=== PATIENT | male | born 1945 | race Caucasian/White ===

== ENCOUNTER → 2021-03-29 13:35 | Outpatient (BNVA) | payer MEDICARE, SELFPAY | PROVIDERS: Visit Provider Urology | DX: C61 Malignant neoplasm of prostate (principal); R31.29 Other microscopic hematuria | CPT/HCPCS: Q3014 ==

== ENCOUNTER → 2022-04-03 12:50 | Outpatient (BNVA) | payer MEDICARE, SELFPAY | PROVIDERS: Visit Provider Urology | DX: N40.1 Benign prostatic hyperplasia with lower urinary tract symptoms (principal); N13.8 Other obstructive and reflux uropathy; C61 Malignant neoplasm of prostate; N52.9 Male erectile dysfunction, unspecified | CPT/HCPCS: Q3014 ==

== ENCOUNTER 2023-05-28 11:55 | Outpatient (AMB) | payer MEDICARE, BC, SELFPAY ==
--- NOTE | 2023-05-28 13:41 | MHC.OFFVIS ---
Intake Intake Visit Reasons: 1Y PSA(set) Allergies No Known Allergies Allergy (Verified 03/29/21 12:55) Medication List - Last Reconciled 05/28/23 by Hernesto Sanchez MD apixaban (Eliquis) 5 mg PO BID HPI HPI Comments History of Present Illness Details Noe RAMIREZ is a very pleasant male. He is a patient of Dr Maciel. He is seen for the following urologic conditions. - prostate cancer Telephone evaluation 15 minute consultation Doximity valeria Video attempted PSA 03/02 <0.1, 05/04 <0.1 Ten years since salvage radiation PSA remains in control Continue yearly review Control with urination Minimal nocturia Prostate cancer:? Low risk initial therapy prostatectomy, salvage radiation 2011 ? Prostate cancer was diagnosed?Dr Mobley.? Diagnosis was reached by?needle biopsy, for elevated PSA.? The [place] grade is?3+3 = 6.? TNM Classification of Malignant Tumours (TNM)?T1c.? The D'Ros[place] (NCCN) risk category is?Low Risk (PSA< 10, Gl < 7, T1c).? Initial therapy included?Primary treatment, Prostatectomy (RRP/Robotic) 2008 ?, Additional treatment, External Beam Radiation 2011 ?, Additional treatment, Observation ? Recent labs included?a PSA (prostate-specific antigen) reported as < 0.1 ?10/26 < 0.1, 10/27 , < 0.1,?10/28 < 0.1,??10/29 < 0.1, 03/01 <0.1 ? Associated conditions ? erectile dysfunction ?yes ? Therapeutic plan:?Continue with yearly surveillance.? PFSH Medical History BPH (benign prostatic hyperplasia) Microscopic hematuria Prostate cancer Surgical History History of surgery Social History Patient Tobacco Use Status: Never used Tobacco Review of Systems Const All systems reviewed & are unremarkable except as noted in HPI and below Reports no additional complaints Resp Reports no additional complaints GI Reports no additional complaints Reports as per HPI Musc Reports no additional complaints Physical Exam Telemedicine evaluation Appropriate responses Regular breathing rate and rhythm HEENT Head: Yes normal to inspection Ears: hearing grossly normal bilaterally Eyes General: appearance normal, both eyes and all related structures Neck Neck: Yes normal visual inspection Chest Chest palpation & inspection: normal inspection of the chest Resp Effort & Inspection: normal respiratory effort and able to speak in complete sentences Assessment & Plan Assessment & Plan (1) Microscopic hematuria: Code(s): R31.29 - Other microscopic hematuria (2) Prostate cancer: Code(s): C61 - Malignant neoplasm of prostate Plan 12m with PSA Orders: Orders Prostate Specific Antigen 364 Days C61 - Malignant neoplasm of prostate Patient Instructions: Imaging studies, laboratory and physical exam results were discussed and reviewed in detail. No major barriers to patient understanding were identified. An opportunity to ask questions regarding the treatment plan was provided. All questions were answered. The patient expressed understanding and agreement with the above treatment plan. The patient is aware they should contact our office by phone for worsening of their current condition or the appearance of new urologic symptoms. Compliance is encouraged with any medications and followup testing that is ordered. It is a privilege to participate in the urologic care of your patient. If you have any questions or concerns regarding treatment for the above conditions, or other urologic issues, please do not hesitate to contact me. The office telephone contact is [phone]. This note is constructed using voice recognition software. While every effort has been made to ensure accuracy dress cap maker errors may have been included. Yours sincerely, Dr Hernesto Sanchez MD, [facility] - Urology Providers of Expert, Compassionate Care for the Genitourinary System Telehealth Telehealth Location of provider rendering services: practice address Location of patient: address on file Patient Identification confirmed using: Name, : Yes Telehealth method: video Patient verbally consented to treatment: Yes Patient verbally consented to billing insurance company: Yes Patient informed of any privacy concerns related to visit: Yes Coding Level of Care Code Tele Est Pt Level 4 (20395) Diagnoses Microscopic hematuria R31.29 Prostate cancer C61
== END 2023-05-28 13:53 | disposition home or self-care (01) ==
LOC: HO.HUSH 11:55
PROVIDERS: Visit Provider Urology
DX: R31.29 Other microscopic hematuria (principal); Z85.46 Personal history of malignant neoplasm of prostate
CPT/HCPCS: 99442

== ENCOUNTER → 2023-05-28 11:55 | Outpatient (BNVA) | payer MEDICARE, SELFPAY | PROVIDERS: Visit Provider Urology ==

== ENCOUNTER 2024-06-24 10:08 | Outpatient (AMB) | payer MEDICARE, BC, SELFPAY ==
--- NOTE | 2024-06-24 10:16 | A.OFFVIS_ITS ---
Intake Visit Reasons: 1Y PSA(psa?) Intake Note: Patient is Present for Follow Up PSA Urology Medication: None Antibiotic Allergies: None Blood Thinners: Eliquis Recent PSA: 06/17/24 0.04 Aircraft Engine Dismantler Required: No Accompanied by: Self / Same As Patient Allergies No Known Allergies Allergy (Verified 06/24/24 10:19) HPI Comments Details: Noe RAMIREZ is a very pleasant male. He is a patient of Dr Maciel. He is seen for the following urologic conditions. - prostate cancer PSA 03/02 <0.1, 05/04 <0.1, 07/05 0.04 Continue good PSA control - discussed ultrasensitive PSA versus regular Control with urination Minimal nocturia Continue yearly follow-up Prostate cancer:? Low risk initial therapy prostatectomy, salvage radiation 2011 ? Prostate cancer was diagnosed?Dr Mobley.? Diagnosis was reached by?needle biopsy, for elevated PSA.? The [place] grade is?3+3 = 6.? TNM Classification of Malignant Tumours (TNM)?T1c.? The D'Rosario (NCCN) risk category is?Low Risk (PSA< 10, Gl < 7, T1c).? Initial therapy included?Primary treatment, Prostatectomy (RRP/Robotic) 2008 ?, Additional treatment, External Beam Radiation 2011 ?, Additional treatment, Observation ? Recent labs included?a PSA (prostate-specific antigen) reported as < 0.1 ?10/26 < 0.1, 10/27 , < 0.1,?10/28 < 0.1,??10/29 < 0.1, 03/01 <0.1 ? Associated conditions ? erectile dysfunction ?yes ? Therapeutic plan:?Continue with yearly surveillance.? [facility] Medical History BPH (benign prostatic hyperplasia) Microscopic hematuria Prostate cancer Surgical History History of surgery Social History Patient Tobacco Use Status: Never used Tobacco Review of Systems Const Denies chills and Denies fever(s) Card Reports no additional complaints and Denies syncope Resp Denies cough GI Denies abdominal pain and Denies heartburn Reports as per HPI and Denies change in libido Neuro Denies syncope Psych Denies change in libido Endo Denies change in libido Physical Exam Const General: cooperative, healthy appearing, comfortable and no acute distress Orientation/consciousness: patient oriented x3 HEENT Face and sinus: Yes normal facial exam Mouth: moist mucous membranes Neck Neck: Yes normal visual inspection, Yes full ROM and Yes trachea midline Chest Chest palpation & inspection: normal inspection of the chest Resp Effort & Inspection: normal respiratory effort, able to speak in complete sentences and no respiratory distress GI Inspection: Yes normal to inspection Back/Spine/Pelvis Cervical Spine: normal cervical lordosis Thoracic/Lumbar Spine: thoracic and lumbar spine normal to inspection Skin General skin exam: no rashes or lesions noted Neuro General: patient oriented x3, gait normal, tone normal and moves all extremities Extrem General: Yes normal to inspection and Yes capillary refill normal Assessment & Plan Assessment & Plan (1) Microscopic hematuria: Code(s): R31.29 - Other microscopic hematuria Category: Medical (2) Prostate cancer: Code(s): C61 - Malignant neoplasm of prostate Category: Medical Plan One year follow-up Orders: Orders Prostate Specific Antigen 364 Days C61 - Malignant neoplasm of prostate Patient Instructions: Imaging studies, laboratory and physical exam results were discussed and reviewed in detail. No major barriers to patient understanding were identified. An opportunity to ask questions regarding the treatment plan was provided. All questions were answered. The patient expressed understanding and agreement with the above treatment plan. The patient is aware they should contact our office by phone for worsening of their current condition or the appearance of new urologic symptoms. Compliance is encouraged with any medications and followup testing that is ordered. It is a privilege to participate in the urologic care of your patient. If you have any questions or concerns regarding treatment for the above conditions, or other urologic issues, please do not hesitate to contact me. The office telephone contact is [phone]. This note is constructed using voice recognition software. While every effort has been made to ensure accuracy bill of lading clerk errors may have been included. Yours sincerely, Dr Hernesto Sanchez MD, [facility] - Urology Providers of Expert, Compassionate Care for the Genitourinary System Coding Level of Care Code Est Pt Level 4 (42127) Diagnoses Microscopic hematuria R31.29 Prostate cancer C61
== END 2024-06-24 10:56 | disposition home or self-care (01) ==
PROVIDERS: Visit Provider Urology
DX: R31.29 Other microscopic hematuria (principal); C61 Malignant neoplasm of prostate
CPT/HCPCS: 99214

== ENCOUNTER → 2024-06-24 10:08 | Outpatient (BNVA) | payer MEDICARE, SELFPAY | PROVIDERS: Visit Provider Urology | DX: C61 Malignant neoplasm of prostate (principal); R31.29 Other microscopic hematuria | CPT/HCPCS: 99212 ==

== ENCOUNTER 2025-06-23 08:52 | Outpatient (AMB) | payer MEDICARE, SELFPAY ==
--- OUTSIDE RECORDS SUMMARY | 2024-07-06 03:30 | XMS_ITS ---
Author Organization [facility] Address [address] [place], [place] [id number] Care Team Providers Care Rubber Mixer Name Role Phone GELAERIN Primary Care Provider ALLERGIES Allergen (clinical drug ingredient) Drug/Non Drug Allergy documented on EMR Reaction Allergy Type Onset Date Status Shellfish (FN) Shellfish-derived Products hives, rash Drug Allergy Active Shellfish (FN) Shellfish-derived Products itchy, hives Drug Allergy Active REASON FOR VISIT N/36/AWV SOCIAL HISTORY Tobacco Use: Social History Observation Description Date Details (start date - stop date) Former Smoker NA - NA Sex Assigned At : Social History Observation Description Sex Assigned At Unknown Smoking Question Answer Notes Are you a: former smoker How long has it been since you last smoked? > 10 years Alcohol Screen Question Answer Notes Did you have a drink contain ing alcohol in the past year? Yes How often did you have a dri nk containing alcohol in the past year? Monthly or less (1 point) How many drinks did you have on a tpical day when you were drinking in the past year? 3 or 4 (1 point) How often did you have six o r more drinks on one occassion in the past year? Never (0 points) Points 2 Interpretation Negative Section Notes: 1 cup of coffe effee VITAL SIGNS Height 71 in 07/06/2024 Weight 207.2 lbs 07/06/2024 Blood pressure systolic 130 mm Hg 07/06/20 24 Blood pressure diastolic 72 mm Hg 024 BMI 28.90 kg/m2 07/06/2024 Encounters Encounter Location Date Provider Diagnosis [facility] [address] [place] [phone] 07/06/2024 ERIN REN Medicare annual wellness visit, subsequent Z00.00 ASSESSMENTS Encounter Date Diagnosis Assessment Notes Treatment Notes Treatment Clinical Notes Section Notes 07/06/2024 Medicare annual wellness visit, subsequent (ICD-10 - Z00.00) AWV reviewed with pt PLAN OF TREATMENT Treatment Notes Assessment Notes Medicare annual wellness visit, subseque nt AWV reviewed with pt Next Appt Details Follow Up: prn, Reason: Provider Name:ZEUS Mcclure, 07/12/2025 09:00:00 AM, [address] [place] [address], [phone], Provider Name:ERIN GELA, 07/12/2025 09:40:00 AM, [address] [place] [address], [phone], History and Physical Notes * HPI (History of Present Illness) Category Sub-Category Detail Notes Category Not es Depression Screening PHQ-2 (2015 Edition) Little interest or pleasure in doing things?: Not at all Feeling down, depressed, or hopeless?: N ot at all Total Score: 0
--- OUTSIDE RECORDS SUMMARY | 2024-07-06 04:00 | XMS_ITS ---
Author Organization [facility] Address [address] [place], [place] [id number] Care Team Providers Care Brewery Technician Name Role Phone GELAERIN Primary Care Provider [phone] ALLERGIES Allergen (clinical drug ingredient) Drug/Non Drug Allergy documented on EMR Reaction Allergy Type Onset Date Status Shellfish (FN) Shellfish-derived Products hives, rash Drug Allergy Active Shellfish (FN) Shellfish-derived Products itchy, hives Drug Allergy Active REASON FOR VISIT AWV, had flu shot MEDICATIONS Medication SIG (Take, Route, Frequency, Duration) Notes Start Date End Date Status Eliquis 5 MG as directed Orally Active SOCIAL HISTORY Tobacco Use: Social History Observation Description Date Details (start date - stop date) Former Smoker NA - NA Sex Assigned At : Social History Observation Description Sex Assigned At Unknown Smoking Question Answer Notes Are you a: former smoker How long has it been since you last smoked? 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 98447046 VITAL SIGNS Height 71 in 07/06/2024 Weight 207.2 lbs 07/06/2024 Blood pressure systolic 130 mm Hg 07/06/20 24 Blood pressure diastolic 72 mm Hg 024 BMI 28.90 kg/m2 07/06/2024 Encounters Encounter Location Date Provider Diagnosis [facility] [address] [place] [address] 07/06/2024 ERIN REN History of DVT (deep vein thrombosis) Z86.718 ; Hereditary thrombophilia D68.8 ; Chronic anticoagulation Z79.01 ; Secondary hypercoagulable state D68.69 and Screening for deficiency anemia Z13.0 ASSESSMENTS Encounter Date Diagnosis Assessment Notes Treatment Notes Treatment Clinical Notes Section Notes 07/06/2024 History of DVT (deep vein thrombosis) (ICD-10 - Z86.718) stable on eliquis check labs 07/06/2024 Hereditary thrombophilia (ICD-10 - D68.8) stable on eliquis 07/06/2024 Chronic anticoagulation (ICD-10 - Z79.01) 07/06/2024 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, stable on eliquis 07/06/2024 Screening for deficiency anemia (ICD-10 - Z13.0) PLAN OF TREATMENT Treatment Notes Assessment Notes History of DVT (deep vein thrombosis) st able on eliquis check labs Hereditary thrombophilia stable on eliqu is Secondary hypercoagulable state due to h eterozygous factor 5 Leiden def and factor 2 mutation, stable on eliquis Next Appt Details Follow Up: 1 Year annual, Re ason: Provider Name:ZEUS Mcclure, 07/12/2025 09:00:00 AM, [address] [place] [address], [phone], Provider Name:ERIN REN, 07/12/2025 09:40:00 AM, [address] [place] [address], [phone], History and Physical Notes * HPI (History of Present Illness) Category Sub-Category Detail Notes Category Not es Depression Screening PHQ-2 (2015 Edition) Little interest or pleasure in doing things?: Not at all f/u states yearly PSA with urology and then f/u Dr Sanchez urology States pksas ' down at zero [id number] Dr Perez colonoscopy 2020 colonoscopy hx polyps and states is on 5 yr plan . 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 and states has 2 markers and states told eliquis forever Feeling down, depressed, or hopeless?: N ot at all Total Score: 0 Physical Examination Category Sub-Category Detail Notes Section Note s HEENT Head: normocephalic, atraumatic 1 08/2022 cbc creat LFts good and lipid LDL 140s NECK Thyroid: not enlarged, no nodules cbc creat LFts good and lipid LDL 140s EXTREMITIES Edema: none 06/2023 cbc cre at LFts good and lipid LDL 140s CHEST Breath sounds: clear to auscultation 2022 cbc creat LFts good and lipid LDL 140s HEART Rhythm: regular 06/2023 cbc cre at LFts good and lipid LDL 140s Murmurs: none Heart sounds: Normal S1 & S2, no S 3/S4 NEUROLOGICAL Gait: normal 06/2023 cbc cre at LFts good and lipid LDL 140s Mental status: Alert and oriented t o person, place, time Cerebellar: normal Speech normal MUSCULOSKELETAL Joint exam normal ROM, no synovitis, tenderness or deformity 06/2023 cbc creat LFts good and lipid LDL 140s GENERAL General Appearance: well nourish ed, no apparent distress, well developed 06/2023 cbc creat LFts good and lipid LDL 140s PSYCHOLOGY Grooming: appropriate 06/2023 cbc cre at LFts good and lipid LDL 140s Eye contact: normal Mood: pleasant Affect appropriate LYMPHATICS Cervical nodes: not enlarged 06/2023 cbc creat LFts good and lipid LDL 140s Axillary nodes: not enlarged Supraclavicular none palpable
--- OUTSIDE RECORDS SUMMARY | 2024-08-19 06:33 | XMS_ITS ---
Author Organization [facility] Address [address] [place], [place] [id number] Care Team Providers Care Lime Mixer Tender Name Role Phone ERIN REN Primary Care Provider [phone] ALLERGIES Allergen (clinical drug ingredient) Drug/Non Drug Allergy documented on EMR Reaction Allergy Type Onset Date Status Shellfish (FN) Shellfish-derived Products hives, rash Drug Allergy Active Shellfish (FN) Shellfish-derived Products itchy, hives Drug Allergy Active REASON FOR VISIT Eliquis refill request MEDICATIONS Medication SIG (Take, Route, Frequency, Duration) Notes Start Date End Date Status Eliquis 5 MG 1 tab(s) Orally Twice a day for 90 days Active Encounters Encounter Location Date Provider Diagnosis [address] [phone] 08/19/2024 ERIN REN PLAN OF TREATMENT Medication Medication Name Sig Start Date Stop Date Notes Eliquis 5 MG 1 tab(s) Orally Twice a day for 90 days Next Appt Details Provider Name:ZEUS Mcclure, 07/12/2025 09:00:00 AM, [address] [place] [address], [phone], Provider Name:ERIN REN, 07/12/2025 09:40:00 AM, [address] [place] [address], [phone],
--- OUTSIDE RECORDS SUMMARY | 2025-03-02 08:15 | XMS_ITS ---
Author Organization [facility] Address [address] [place], [place] [phone] Care Team Providers Care Prover Name Role Phone ERIN REN Primary Care Provider REASON FOR VISIT [place] Encounters Encounter Location Date Provider Diagnosis [address] [place] [address] 03/02/2025 ERIN REN PLAN OF TREATMENT Next Appt Details Provider Name:ZEUS Mcclure, 07/12/2025 09:00:00 AM, [address] [place] [address], [phone], Provider Name:ERIN REN, 07/12/2025 09:40:00 AM, [address] [place] [address], [phone],
--- OUTSIDE RECORDS SUMMARY | 2025-03-03 03:40 | XMS_ITS ---
Author Organization [facility] Address [address] [place], [place] [id number] Care Team Providers Care Rib Bender Name Role Phone ERIN REN Primary Care Provider [phone] ALLERGIES Allergen (clinical drug ingredient) Drug/Non Drug Allergy documented on EMR Reaction Allergy Type Onset Date Status Shellfish (FN) Shellfish-derived Products hives, rash Drug Allergy Active Shellfish (FN) Shellfish-derived Products itchy, hives Drug Allergy Active REASON FOR VISIT [place] MEDICATIONS Medication SIG (Take, Route, Fr equency, Duration) Notes Start Date End Date Status Nystatin 146437 UNIT/ML 4 mL Mouth/Throa t Four times a day for 14 day(s) 03/03/2025 Active Eliquis 5 MG 1 tab(s) Orally Twic e a day for 90 days Active SOCIAL HISTORY Tobacco Use: Social History Observation Description Date Details (start date - stop date) Never Smoker NA - NA Sex Assigned At : Social History Observation Description Sex Assigned At Unknown Smoking Question Answer Notes Are you a: never smoker Section Notes: 1 cup of coffe effee VITAL SIGNS Height 71 in 03/03/2025 Weight 198 lbs 03/03/2025 Blood pressure systolic 110 mm Hg 03/03/20 25 Blood pressure diastolic 62 mm Hg 025 BMI 27.61 kg/m2 03/03/2025 Encounters Encounter Location Date Provider Diagnosis [facility] [address] [place] [address] 03/03/2025 ERIN Garrison B37.0 ASSESSMENTS Encounter Date Diagnosis Assessment Notes Treatment Notes Treatment Clinical Notes Section Notes 03/03/2025 Thrush (ICD-10 - B37.0) call if not resolving on tx PLAN OF TREATMENT Medication Medication Name Sig Start Date Stop Date Notes Nystatin 485824 UNIT/ML 4 mL Mouth/Throa t Four times a day for 14 day(s) 03/03/2025 Treatment Notes Assessment Notes Thrush call if not resolvin g on tx Next Appt Details Follow Up: Decemb awv, Reaso n: Provider Name:ZEUS Mcclure, 07/12/2025 09:00:00 AM, [address] [place] [address], [phone], Provider Name:ERIN REN, 07/12/2025 09:40:00 AM, [address] [place] [address], [phone], History and Physical Notes * HPI (History of Present Illness) Category Sub-Category Detail Notes Category Not es General states one yessy h ago , dental looked in mouth said myranda looks pink . States sensitivity in moutha nd some decreeased taste. No sores. Thinks had covid 2 months ago. Physical Examination Category Sub-Category Detail Notes Section Note s HEENT Head: normocephalic, atraumatic Oral cavity: redness tongue and b uccal mucosa NEUROLOGICAL Gait: normal Mental status: Alert and oriented t o person, place, time Speech normal GENERAL General Appearance: well nourish ed, no apparent distress, well developed LYMPHATICS Cervical nodes: not enlarged Axillary nodes: not enlarged Supraclavicular none palpable
--- NOTE | 2025-06-23 08:52 | MHC.OFFVIS ---
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 He is a patient of Dr Maciel. He is seen for the following urologic conditions. - prostate cancer PSA 03/02 <0.1, 05/04 <0.1, 07/05 0.04, 06/05 0.08 Telemedicine Evaluation 15 min Consultation Doximity Danita Video Continue good PSA control - discussed ultrasensitive PSA versus regular - slight rise in PSA Control with urination Minimal nocturia Check in six-month Prostate cancer:? Low risk initial therapy prostatectomy, salvage radiation 2011 ? Prostate cancer was diagnosed?Dr Mobley.? Diagnosis was reached by?needle biopsy, for elevated PSA.? The Kincheloe grade is?3+3 = 6.? TNM Classification of Malignant Tumours (TNM)?T1c.? The D'Rosario (NCCN) risk category is?Low Risk (PSA< 10, Gl < 7, T1c).? Initial therapy included?Primary treatment, Prostatectomy (RRP/Robotic) 2008 ?, Additional treatment, External Beam Radiation 2011 ?, Additional treatment, Observation ? Recent labs included?a PSA (prostate-specific antigen) reported as < 0.1 ?10/26 < 0.1, 10/27 , < 0.1,?10/28 < 0.1,??10/29 < 0.1, 03/01 <0.1 ? Associated conditions ? erectile dysfunction ?yes ? Therapeutic plan:?Continue with yearly surveillance.? [facility] Medical History Prostate cancer Microscopic hematuria BPH (benign prostatic hyperplasia) Surgical History History of surgery Social History Patient Tobacco Use Status: Never used Tobacco Review of Systems Const All systems reviewed & are unremarkable except as noted in HPI and below Reports no additional complaints Resp Reports no additional complaints GI Reports no additional complaints Reports as per HPI Musc Reports no additional complaints Physical Exam Telemedicine evaluation Appropriate responses Regular breathing rate and rhythm HEENT Head: Yes normal to inspection Ears: hearing grossly normal bilaterally Eyes General: appearance normal, both eyes and all related structures Neck Neck: Yes normal visual inspection Chest Chest palpation & inspection: normal inspection of the chest Resp Effort & Inspection: normal respiratory effort and able to speak in complete sentences Telehealth Telehealth Telehealth Platform: [employer] Location of provider rendering services: practice address Location of patient: address on file Patient Identification confirmed using: Name, : Yes Telehealth method: video Patient verbally consented to treatment: Yes Patient verbally consented to billing insurance company: Yes Patient informed of any privacy concerns related to visit: Yes Minutes spent on Phone/Video with Pt.: 15 Assessment & Plan Assessment & Plan (1) Prostate cancer: Code(s): C61 - Malignant neoplasm of prostate Category: Medical Plan Six-month follow-up PSA Orders: Orders PSA, Ultra Sensitive 6 Months C61 - Malignant neoplasm of prostate Patient Instructions: This note is constructed using voice recognition software. While every effort has been made to ensure accuracy appraiser land errors may have been included. Imaging studies, laboratory and physical exam results were discussed and reviewed in detail. No major barriers to patient understanding were identified. An opportunity to ask questions regarding the treatment plan was provided. All questions were answered. The patient expressed understanding and agreement with the above treatment plan. The patient is aware they should contact our office by phone for worsening of their current condition or the appearance of new urologic symptoms. Compliance is encouraged with any medications and followup testing that is ordered. It is a privilege to participate in the urologic care of your patient. If you have any questions or concerns regarding treatment for the above conditions, or other urologic issues, please do not hesitate to contact me. The office telephone contact is [phone]. Sincerely, Dr Hernesto Sanchez MD, [facility] - Urology Compassionate Specialist Care for the Genitourinary System Coding Level of Care Code Tele Est Pt Level 4 (11757) Complex EM visit Add On G2211 Diagnoses Prostate cancer C61
--- OUTSIDE RECORDS SUMMARY | 2025-06-23 09:20 | XMS_ITS | Clinical Summary ---
Author Organization [facility] Address [address] [place] [address] Care Team Providers Care Catalogue Librarian Name Role Phone Frankie Maciel Lawanda TARIQ Primary Care Provider [phone] Immunizations Name Administration Dates Next Due Covid-19 (Pfizer) Dilution Required 10/07/2020 Social History Tobacco Use Types Packs/Day Years Used Date Smoking Tobacco: Never Assessed Sex and Gender Information Value Date Recorded Sex Assigned at Male 10/07/2020 1:42 PM EST Gender Identity Not on file Sexual Orientation Not on file Plan of Treatment Health Maintenance Due Date Last Done Comments Hepatitis C Screening 1945 Depression Screening 1959 Preventative Health Evaluation 11/22/1965 DTap / Tdap / Td (1 - Tdap) 11/22/1966 Fall Risk Assessment 11/22/2012 Pneumococcal Vaccine (1 of 1 - PCV) 11/22/2012 RSV Adult > 60+ Yrs or (1 - 1-dose 75+ series) 11/22/2022 COVID-19 Vaccine (2 - 2024-2 6 season) 2025 10/07/2020 Influenza Vaccine (#1) 2025 8, 07/23/2017 Shingrix-Zoster Vaccine Completed 08/22/19 21, 05/30/2020 Hepatitis B Vaccines Aged Out No long er eligible based on patient's age to complete this topic RSV Ped < 20 months Aged Out No longe r eligible based on patient's age to complete this topic Care Teams Catalogue Librarian Relationship Specialty Start Date End Date Frankie Maciel DO [address] [place] [address] PCP - General Internal Medicine 10/07/20
--- OUTSIDE RECORDS SUMMARY | 2025-06-23 09:20 | XMS_ITS | Patient Health Record ---
Author Organization [facility] Address [address], [place] [id number] Care Team Providers Care Waterside Worker Name Role Phone ERIN REN Primary Care Provider ALLERGIES Allergen (clinical drug ingredient) Drug/Non Drug Allergy documented on EMR Reaction Allergy Type Onset Date Status Shellfish (FN) Shellfish-derived Products hives, rash Drug Allergy Active Shellfish (FN) Shellfish-derived Products itchy, hives Drug Allergy Active REASON FOR REFERRAL No Information MEDICATIONS Medication SIG (Take, Route, Fr equency, Duration) Notes Start Date End Date Status Nystatin 565595 UNIT/ML 4 mL Mouth/Throa t Four times a day for 14 day(s) 03/03/2025 Active Eliquis 5 MG TAKE 1 TABLET BY ISAIAS TWICE DAILY for 90 Active IMMUNIZATIONS Vaccine Route Administration Date Status Comme nts PREVNAR 13, STATE SUPPLIED IM Intramuscular 08/31/2014 Administered Zostavax (Shingles) SC Subcutaneous 06/28/2014 Administered merch sharp d Typhoid, IM IM Intramuscular 03/02/2019 Administered TDAP, Boostrix Unknown 12/31/2018 Administered Tdap ADACEL Unknown 02/16/2009 Administered Tdap (Adacel)11-64,St ate Supplied Unknown 02/16/2009 Administered SHINGRIX HZV VACCINE IM Intramuscular 05/30/2020 Administered Glaxosmithkline shingrix recombinant dose [id number] SHINGRIX HZV VACCINE IM Intramuscular 08/23/2020 Administered GlaxoSmithKline Pneumococcal, PPV 23 IM Intramuscular 05/17/2020 Administered Pfizer COVID-19,mRNA, LNP-S, PF, 30mcg/0.3mL dose IM Intramuscular 04/20/2022 Administered 2nd 11/02/20 at [facility] and 3rd the booster 05/11/2021 and Apr 20, 2022 Meningitis B IM Intramuscular 03/02/2019 Administered Influenza, Fluzone HD 65+ Unknown 07/23/2017 Administered Influenza, Fluzone HD 65+ IM Intramuscular 06/19/2018 Administered Influenza, Fluzone HD 65+ IM Intramuscular 06/15/2019 Administered Influenza, Fluzone HD 65+ IM Intramuscular 05/17/2020 Administered Hepatitis B, Adult IM Intramuscular 12/31/2018 Administered Hepatitis B, Adult IM Intramuscular 02/02/2019 Administered Hepatitis B, Adult IM Intramuscular 06/15/2019 Administered Hepatitis A, Adult IM Intramuscular 03/02/2019 Administered FLU- FLUVIRIN, PRE-FILLED SYRINGE 0.5 ml Unknown 06/16/2014 Administered SOCIAL HISTORY Tobacco Use: Social History Observation Description Date Details (start date - stop date) Never Smoker NA - NA Sex Assigned At : Social History Observation Description Sex Assigned At Unknown Smoking Question Answer Notes Are you a: never smoker Section Notes: 1 cup of coffe effee 1 cup of coffe effee 1 cup of coffe effee 1 cup of coffe effee 1 cup of coffe effee 1 cup of coffe effee 1 cup of coffe effee PROBLEMS Problem Type ICD Code Onset Dates Problem Status W/U Status Risk SNOMED Code Notes Problem Nevus, pigmented, of skin of other specified sites (216.8) Active confirmed Benign neoplasm of skin (02696716) Problem Hypercholesterolemia NOS (272.4) Active confirmed Hypercholestero lemia (48389099) Problem Leg length discrepancy (736.81) Active confirmed Leg ailin gth discrepancy (972361187) Problem Scoliosis NOS (737.43) Active confirmed Scoliosis (679496195) Problem Vitamin D deficiency NOS (268.9) Active confirmed Vitamin D defic iency (88187036) Problem TENOSYNOV HAND/WRIST NEC (727.05) Active confirmed Problem H/o colon adenoma (211.3) Active confirmed Benign neoplasm of colon (19748719) Problem Inguinal hernia, bilateral NOS without mention of obstruction or gangrene (550.92) Active confirmed Bilateral inguinal hernia (93166336) Problem Vitamin D deficiency (E55.9) Active confirmed 72216816 Problem Malignant neoplasm o f prostate (C61) Active confirmed Malignant marielena plasm of prostate (170134394) Problem Hyperlipidemia, unspecified (E78.5) Active confirmed Hyperlip idemia (10499468) Problem Other chronic pain (G89.29) Active confirmed 72033093 Problem Bilateral inguinal hernia, without obstruction or gangrene, not specified as recurrent (K40.20) Active confirmed Bilateral inguinal hernia (53955679) Problem Hx of malignant neoplasm of prostate (Z85.46) Active confirmed 783345938 Problem Hypercoagulable stat e (D68.59) Active confirmed 56648085 Problem History of prostate cancer (Z85.46) Active confirmed 931299979 Problem 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) Active confirmed 29931839 Problem Factor 5 Leiden mutation, heterozygous (D68.51) Active confirmed 321368602 Problem Elevated LDL cholesterol level (E78.00) Active confirmed 802015500 Problem Chronic anticoagulation (Z79.01) Active confirmed 714827869 Problem Acute deep vein thrombosis (DVT) of femoral vein of left lower extremity (I82.412) Active confirmed 846076322852954 Problem 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) Active confirmed 294791708 VITAL SIGNS Blood pressure diastolic 62 mm Hg 03/03/2025 Height 71 in 03/03/2025 Blood pressure systolic 110 mm Hg 03/03/2025 Weight 198 lbs 03/03/2025 BMI 27.61 kg/m2 03/03/2025 Encounters Encounter Location Date Provider Diagnosis [address] [address] 07/06/2024 ERIN REN Medicare annual well ness visit, subsequent Z00.[address] [address] 07/06/2024 ERIN REN History of DVT (deep vein thrombosis) Z86.718 ; Hereditary thrombophilia D68.8 ; Chronic anticoagulation Z79.01 ; Secondary hypercoagulable state D68.69 and Screening for deficiency anemia Z13.[address] [address] 08/19/2024 ERIN REN [address] [address] 03/02/2025 ERIN REN [facility] [address] [place] [address] 03/03/2025 ERIN REN Thrush B37.0 ASSESSMENTS Encounter Date Diagnosis Assessment Notes Treatment Notes Treatment Clinical Notes Section Notes 03/03/2025 Thrush (ICD-10 - B37.0) call if not resolving on tx 07/06/2024 Hereditary thrombophilia (ICD-10 - D68.8) stable on eliquis 07/06/2024 History of DVT (deep vein thrombosis) (ICD-10 - Z86.718) stable on eliquis check labs 07/06/2024 Medicare annual wellness visit, subsequent (ICD-10 - Z00.00) AWV reviewed with pt 07/06/2024 Chronic anticoagulation (ICD-10 - Z79.01) 07/06/2024 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, stable on eliquis 07/06/2024 Screening for deficiency anemia (ICD-10 - Z13.0) PLAN OF TREATMENT Pending Test Test Name Order Date CBC W/OUT AUTOMATED DIFF 07/04/2021 Future Test Test Name Order Date LIPID PROFILE 12/05/2014 CRP hs 12/05/2014 LIPID PROFILE 06/28/2022 PSA 06/28/2022 CBC W/OUT AUTOMATED DIFF 06/28/2022 Next Appt Details Provider Name:ZEUS Mcclure, 07/12/2025 09:00:00 AM, [address] [place], [address], Provider Name:ERIN REN, 07/12/2025 09:40:00 AM, [address] [place], [address], Insurance Providers Payer Name Payer Address Payer Phone Subscriber Number Group Number Insured Name Patient Relationship to Insured Coverage Start Date Coverage End Date MEDICARE [employer] [address] [facility] [place] [address] [id number] JM RAMIREZ Self - patient is the insured [facility] MEDICARE SUPPLEMENT PLAN [address] [place] [address] [id number] JM RAMIREZ Self - patient is the insured 1 MEDICAL (GENERAL) HISTORY Medical History History ICD Code [facility]CER SURVIVOR-PROSTATE CANCER Prostate Cancer; John n= 7-Dr. Dang s/p prostatectomy (04/2000) and IMRT (12/18). 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 work up negative per ENT per pt 10/19 Vitamin D deficiency 10/19 Hypercholesterolemia 10/19-re solved 06/21 w/ diet; 08/2014 200/115/46/131 with ACC/AHA 10 year CV risk 14.7% Herniated lumbar disc in his 20's with o cc RT sciatica Short left leg (1 cm =5/8 inch) dx 2 Thoracolumbar scoliosis Colonoscopy 04/24/2007 - Tubular adenoma in sigmoid colon CT of abd 10/06/2008 - Bilateral inguina l hernias. 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
== END 2025-06-23 09:39 | disposition home or self-care (01) ==
LOC: HO.HUSH 08:52
PROVIDERS: Visit Provider Urology
DX: C61 Malignant neoplasm of prostate (principal)
CPT/HCPCS: 99214; G2211